=== PATIENT | female | born 1980 | race Caucasian/White ===

== ENCOUNTER 2018-02-13 22:55 | Emergency (ER) | payer BC, MEDICAID ==
[~2018-02-13] VITALS: Ht 177.8 cm; Wt 91.0 kg
[2018-02-13 22:57] VITALS: BP 141/86
[2018-02-13] MEDS ORDERED: OXYcodone/APAP 7.5/325MG TABLET ONE (23:30)
[2018-02-13] MEDS ORDERED: OXYcodone/APAP 7.5/325MG TABLET PO ONE (23:30)
== END 2018-02-14 02:17 | disposition home or self-care (01) ==
LOC: ED 02-14 01:45
DX: S83.91XA Sprain of unspecified site of right knee, initial encounter (principal); X58.XXXA Exposure to other specified factors, initial encounter; Y93.89 Activity, other specified; Y99.8 Other external cause status; Y92.009 Unspecified place in unspecified non-institutional (private) residence as the place of occurrence of the external cause
CPT/HCPCS: 99284

== ENCOUNTER 2019-04-22 23:43 | Emergency (ER) | payer OTHER ==
[~2019-04-22] VITALS: Ht 154.9 cm; Wt 118.6 kg
[2019-04-22 23:53] VITALS: BP 191/91
--- NOTE | 2019-04-23 00:25 | NUR ---
Urine sample collected and sent to lab.
[2019-04-23 00:51] LABS: CULTURE INDICATED? YES; MICROSCOPIC INDICATED
== END 2019-04-23 02:00 | disposition home or self-care (01) ==
LOC: ED 04-23 01:41
DX: R10.32 Left lower quadrant pain (principal); R35.0 Frequency of micturition
CPT/HCPCS: 81001; 81025; 87077; 87086; 87186; 99283